=== PATIENT | male | born 1975 | race Caucasian/White ===

== ENCOUNTER 2025-04-22 17:39 | Emergency (ER) | payer OTHER ==
[~2025-04-22] VITALS: Ht 185.4 cm; Wt 129.3 kg
[2025-04-22] MEDS ORDERED: Cefdinir 250 MG/5 ML UDC PO ONE (17:55)
[2025-04-22] MEDS ORDERED: CEFD300 PO (18:11)
== END 2025-04-22 18:14 | disposition home or self-care (01) ==
LOC: ER 17:39
DX: H66.42 Suppurative otitis media, unspecified, left ear (principal)
CPT/HCPCS: 99282; A9270